=== PATIENT | male | born 1955 | race Hispanic/Latino ===

== ENCOUNTER → 2022-04-10 | Outpatient (CLI) | payer OTHER | END | disposition home or self-care (01) | LOC: SHCH 13:11 | PROVIDERS: ATTEND Internal Medicine Cardiovascular Disease | DX: I87.2 Venous insufficiency (chronic) (peripheral) (principal); I73.9 Peripheral vascular disease, unspecified | CPT/HCPCS: 93925; 93970 ==

== ENCOUNTER → 2024-03-17 | Outpatient (CLI) | payer OTHER ==
--- NOTE | 2024-03-18 17:14 | HMCSR ---
APPROVED REPORT Left Lower Extremity Venous Study for DVT. Indications z09; s/p Clarivein Left GSV 03/14/2024 Vein Imaging CFV (L): Normal flow, augmentation and compression. No evidence of DVT. 11.8mm 1233ms of reflux. SFJ (L): Normal flow, augmentation and compression. No evidence of DVT. FEM (L): Normal flow, augmentation and compression. No evidence of DVT. POP (L): Normal flow, augmentation and compression. No evidence of DVT. DFV (L): Normal flow, augmentation and compression. No evidence of DVT. PTV (L): Normal flow, augmentation and compression. No evidence of DVT. Peroneals (L): Normal flow, augmentation and compression. No evidence of DVT. Technologist Impression Deep veins of the left lower extremity appear patent and compressible without thrombus. Left GSV is closed from junction to mid calf. Conclusion Successful ablation of left greater saphenous vein Deep venous reflux noted of left common femoral vein Clinical correlation recommended No DVT Conclusion Successful ablation of left greater saphenous vein Deep venous reflux noted of left common femoral vein Clinical correlation recommended No DVT
== END | disposition home or self-care (01) ==
LOC: SHCH 10:52
PROVIDERS: ATTEND Internal Medicine Cardiovascular Disease
DX: I87.2 Venous insufficiency (chronic) (peripheral) (principal)
CPT/HCPCS: 93971